=== PATIENT | male | born 1945 | race Caucasian/White ===

== ENCOUNTER → 2018-05-16 08:02 | Outpatient (CLI) | payer MEDICARE, SELFPAY ==
[2018-05-16 09:57] LABS: Cholesterol 169 mg/dL (140-199); HDL Cholesterol 43 mg/dL (40-60); LDL Cholesterol Calculated 82 mg/dL (<100); Triglycerides 222 mg/dL (35-150)
== END ==
PROVIDERS: PCP Family Medicine; Visit Provider Physician Assistant
DX: E78.5 Hyperlipidemia, unspecified (principal)
CPT/HCPCS: 36415; 80061

== ENCOUNTER → 2019-01-18 09:44 | Outpatient (CLI) | payer MEDICARE, SELFPAY ==
--- NOTE | 2019-01-18 09:47 | DI.CT.S_ITS ---
PROCEDURE: CT SOFT TISSUE NECK W CON INDICATIONS: Staging Lymphocytic leukemia TECHNIQUE: After the administration of intravenous contrast, 3.0 mm axial sections acquired from the sella to the aortic arch. Additional oblique axial 3.0 mm sections acquired through the pharynx. 3 mm thick coronal and sagittal reformats were generated. For radiation dose reduction, the following was used: automated exposure control. COMPARISON: None. FINDINGS: Image quality: Excellent. Lymph nodes: There are numerous borderline enlarged cervical lymph nodes bilaterally throughout the neck. Vessels: Visualized vasculature appears patent. Neck spaces: The oropharynx, nasopharynx, and pharynx demonstrate no mucosal lesions. The vocal cords, false vocal cords, pyriform sinuses, epiglottis, vallecula, and tongue base all appear normal. Extramucosal spaces appear unremarkable. Glands: The parotid and submandibular glands appear normal. Thyroid gland is normal. Miscellaneous: Visualized brain and orbits appear normal. Lung apices appear clear. Superficial soft tissues appear normal. Bones: No suspicious bony lesions. Visualized sinuses and mastoids appear unremarkable. IMPRESSION: 1. There are numerous borderline sized cervical lymph nodes throughout the neck bilaterally. PET CT may be helpful to assess lymphomatous involvement in these non-enlarged lymph node. Dictated by: Pato Dejesus M.D. on 01/18/2019 at 12:40 Approved by: Pato Dejesus M.D. on 01/18/2019 at 17:36
--- NOTE | 2019-01-18 09:47 | DI.CT.S_ITS ---
PROCEDURE: CT CHEST ABD PEL W CON INDICATIONS: Staging lyphocytic leukemia TECHNIQUE: After the administration of oral and intravenous contrast, 5 mm thick sections acquired from the lung apices to the symphysis. 5 mm coronal and sagittal reformats were performed, with additional 7 mm coronal MIP reformats through the lungs. For radiation dose reduction, the following was used: automated exposure control, adjustment of mA and/or kV according to patient size. COMPARISON: None. FINDINGS: Image quality: Excellent. CHEST: Lungs and pleura: There is a 3 mm nodule in the left major fissure (series 3, image 38). There is lingular scars/atelectasis. No acute airspace opacities. No pleural effusions or pneumothorax. Central and peripheral airways appear patent and normal in caliber. Mediastinum: Heart size is normal. No pericardial effusion. There is coronary artery bypass grafting. No mediastinal or hilar adenopathy by size criteria. Multiple small subcentimeter mediastinal lymph nodes are present. Thoracic aorta and central pulmonary arteries are normal in size. Esophagus is normal in caliber. There is a small hiatal hernia. Chest wall: Sternotomy. No axillary or supraclavicular adenopathy by size criteria. There are numerous subcentimeter axillary lymph nodes bilaterally. Thyroid gland is normal. ABDOMEN: Solid organs: Small indeterminate hepatic hypodensities are most likely cysts. Liver is normal in size and enhancement. Gallbladder contains a calcified stone could. Biliary system is non dilated. Pancreas enhances normally. Spleen is normal in size and enhancement. No adrenal nodules. Kidneys demonstrate normal size and enhancement, without hydronephrosis. Peritoneum and bowel: Bowel loops demonstrate normal wall thickness and caliber. There are multiple colonic diverticula. No free fluid or air. Nodes and vessels: No retroperitoneal or mesenteric adenopathy by size criteria. Numerous subcentimeter para-aortic and mesenteric lymph nodes are identified. Aorta and inferior vena cava are normal in size. Miscellaneous: No ventral hernias. PELVIS: Genitourinary: Bladder wall thickness is normal. Prostate is enlarged. Miscellaneous: No enlarged inguinal nodes although small inguinal lymph nodes are more numerous than normally seen. Bones: No suspicious bony lesions. No vertebral body compression fractures. IMPRESSION: 1. There are increased in number of subcentimeter lymph nodes in thorax, abdomen and pelvis. FDG PET may be helpful to assess lymphomatous involvement in these small lymph nodes. 2. A 3 mm nodule in the left major fissure. Please see enclosed followup recommendation. 3. Spleen is not enlarged. 4. Cholelithiasis. 5. Diverticulosis without acute diverticulitis. 6. Enlarged prostate. Fleischner Society criteria for SOLID lung nodule followup. Nodule size (mm)Low-risk patientHigh-risk patient?4No follow-up neededFollow-up at 12 mo; if no change, no further follow-up>[id number] CT at 12 mo; if no change, no further follow-up needed.Initial follow-up CT at 6-12 mo, then 18-24 mo if no change. >6-8Initial follow-up CT at 6-12 mo, then 18-24 mo if no change. Initial follow-up CT at 3-6 mo, then 9-12 mo and 24 mo if no change. >8Follow-up CT at 3, 9, 24 mo. Or PET and/or biopsy.Same as for low-risk pts. Dictated by: Pato Dejesus M.D. on 01/18/2019 at 12:34 Approved by: Pato Dejesus M.D. on 01/18/2019 at 17:32
== END ==
PROVIDERS: Family Provider Family Medicine; PCP Family Medicine
DX: C91.90 Lymphoid leukemia, unspecified not having achieved remission (principal); R91.1 Solitary pulmonary nodule; K80.80 Other cholelithiasis without obstruction; K57.90 Diverticulosis of intestine, part unspecified, without perforation or abscess without bleeding; N40.0 Benign prostatic hyperplasia without lower urinary tract symptoms; K44.9 Diaphragmatic hernia without obstruction or gangrene
CPT/HCPCS: 36415; 70491; 71260; 74177; 82565; 84520; 85025; Q9967

== ENCOUNTER → 2019-01-29 15:37 | Outpatient (CLI) | payer MEDICARE, SELFPAY | PROVIDERS: Family Provider Family Medicine; PCP Family Medicine | DX: C91.10 Chronic lymphocytic leukemia of B-cell type not having achieved remission (principal) ==

== ENCOUNTER → 2019-11-26 08:23 | Outpatient (CLI) | payer MEDICARE, SELFPAY ==
[2019-11-26 10:48] LABS: Cholesterol 162 mg/dL (140-199); HDL Cholesterol 35 mg/dL (40-60); LDL Cholesterol Calculated 97 mg/dL (<100); Triglycerides 152 mg/dL (35-150)
[2019-11-26 13:21] LABS: Alanine Aminotransferase 30 IU/L (<50); Albumin 4.2 g/dL (3.5-5.0); Alkaline Phosphatase 56 U/L (38-126); Aspartate Aminotransferase 41 IU/L (17-59); BUN Creatinine Ratio 13.6 (6-22); Bilirubin Total 0.8 mg/dL (0.2-1.3); Blood Urea Nitrogen 15 mg/dL (9-20); Calcium 9.2 mg/dL (8.4-10.2); Carbon Dioxide 22 mmol/L (22-32); Chloride 109 mmol/L (98-107); Estimated Glomerular Filt Rate > 60.0 mL/min (>60); Globulin 2.1 g/dL (1.7-4.1); Glucose 99 mg/dL (80-110); HEMOLYSIS < 15 (0-50); Sodium 141 mmol/L (137-145); Total Protein 6.3 g/dL (6.3-8.2)
== END ==
PROVIDERS: PCP Student in an Organized Health Care Education/Training Program; Visit Provider Physician Assistant
DX: E78.5 Hyperlipidemia, unspecified (principal); I25.10 Atherosclerotic heart disease of native coronary artery without angina pectoris
CPT/HCPCS: 36415; 80053; 80061

== ENCOUNTER → 2020-01-04 10:18 | Outpatient (CLI) | payer MEDICARE, SELFPAY ==
[2020-01-04 11:34] LABS: Hematocrit 41.3 % (41-53); Hemoglobin 13.9 g/dL (13.5-17.5); Mean Corpuscular HGB Conc 33.6 % (30-36); Mean Corpuscular Hemoglobin 31.4 PG (26-34); Mean Corpuscular Volume 93.5 fL (80-100); Platelet Count 145 X10^3/uL (150-400); Red Blood Cell Count 4.41 X10^6/uL (4.5-5.9); Red Cell Distribution Width 13.8 % (11.6-14.8); White Blood Cell Count 22.7 X10^3/uL (4.5-11.0)
[2020-01-04 11:35] LABS: Add Manual Diff / Slide Review YES
[2020-01-04 11:37] LABS: Alanine Aminotransferase 33 IU/L (<50); Albumin 4.2 g/dL (3.5-5.0); Albumin Globulin Ratio 1.7 (1.0-2.8); Alkaline Phosphatase 53 U/L (38-126); Aspartate Aminotransferase 38 IU/L (17-59); Bilirubin Total 0.7 mg/dL (0.2-1.3); Blood Urea Nitrogen 16 mg/dL (9-20); Calcium 9.1 mg/dL (8.4-10.2); Carbon Dioxide 27 mmol/L (22-32); Chloride 104 mmol/L (98-107); Estimated Glomerular Filt Rate > 60.0 mL/min (>60); Globulin 2.5 g/dL (1.7-4.1); Glucose 92 mg/dL (80-110); HEMOLYSIS < 15 (0-50); Potassium 4.5 mmol/L (3.4-5.1); Sodium 138 mmol/L (137-145); Total Protein 6.7 g/dL (6.3-8.2)
[2020-01-04 12:59] LABS: Neutrophils Absolute Manual 4313 /uL (3000-5900); Total Cells Counted 100
[2020-01-04 13:01] LABS: Anisocytosis 1+; Smudge Cells 1+
== END ==
PROVIDERS: PCP Student in an Organized Health Care Education/Training Program; Referring Provider Internal Medicine Hematology & Oncology; Visit Provider Internal Medicine Hematology & Oncology
DX: C91.90 Lymphoid leukemia, unspecified not having achieved remission (principal)
CPT/HCPCS: 36415; 80053; 85025

== ENCOUNTER → 2020-01-11 10:54 | Outpatient (CLI) | payer MEDICARE, SELFPAY ==
--- NOTE | 2020-01-11 10:55 | DI.CT.S_ITS ---
PROCEDURE: CT SOFT TISSUE NECK W CON INDICATIONS: Surveillance of chronic lymphoblastic leukemia TECHNIQUE: After the administration of intravenous contrast, 3.0 mm axial sections acquired from the sella to the aortic arch. Additional oblique axial 3.0 mm sections acquired through the pharynx. 3 mm thick coronal and sagittal reformats were generated. For radiation dose reduction, the following was used: automated exposure control. COMPARISON: [facility], CT, CT CHEST ABD PEL W CON, 01/11/2020, 11:47. [facility], CT, CT SOFT TISSUE NECK W CON, 01/18/2019, 10:56. FINDINGS: Image quality: Excellent. Lymph nodes: There is generalized mild enlargement seen of the cervical lymph nodes. Compared to the 01/18/19 examination, there is no significant interval change. Vessels: Visualized vasculature appears patent. Neck spaces: The oropharynx, nasopharynx, and pharynx demonstrate no mucosal lesions. The vocal cords, false vocal cords, pyriform sinuses, epiglottis, vallecula, and tongue base all appear normal. Extramucosal spaces appear unremarkable. Glands: The parotid and submandibular glands appear normal. Thyroid gland demonstrates no significant CT abnormality. Miscellaneous: Visualized brain and orbits appear normal. Mild dependent groundglass opacity can be seen involving the lung apices, left worse than right. Superficial soft tissues appear normal. Sternotomy wires and mediastinal clips are partially seen. Bones: No suspicious bony lesions. Visualized sinuses and mastoids appear unremarkable. Cervical spine degenerative changes are seen, with moderate to severe disc space narrowing seen at C3-C4, C4-C5, C5-C6, and C6-C7. Endplate irregularity and sclerosis are seen, which are most prominent at C5-C6. IMPRESSION: No significant change in the generalized mild enlargement of the neck lymph nodes. Incidental note is made of: Post CABG change Cervical spine degenerative change Dictated by: Mal Correa M.D. on 01/11/2020 at 11:38 Approved by: Mal Correa M.D. on 01/11/2020 at 11:47
--- NOTE | 2020-01-11 12:05 | DI.CT.S_ITS ---
PROCEDURE: CT CHEST ABD PEL W CON INDICATIONS: Surveillance Chronic lymphoblastic leukemia TECHNIQUE: After the administration of oral and intravenous contrast, 5 mm thick sections acquired from the lung apices to the symphysis. 5 mm coronal and sagittal reformats were performed, with additional 7 mm coronal MIP reformats through the lungs. For radiation dose reduction, the following was used: automated exposure control, adjustment of mA and/or kV according to patient size. COMPARISON: [facility], CT, CT CHEST ABD PEL W CON, 01/18/2019, 10:56. FINDINGS: Image quality: Excellent. CHEST: Lungs and pleura: The 3 mm left major fissure nodule is no longer visualized. No acute airspace opacities. No pleural effusions or pneumothorax. Central and peripheral airways appear patent and normal in caliber. Mediastinum: Heart size is normal. No pericardial effusion. Moderate coronary artery calcifications and coronary artery bypass grafting. Numerous subcentimeter mediastinal or hilar lymph nodes are present. Thoracic aorta and central pulmonary arteries are normal in size. Esophagus is normal in caliber. Small hiatal hernia. Chest wall: There are numerous small right supraclavicular lymph nodes and small bilateral axillary lymph nodes, unchanged. Thyroid gland is normal. There is sternotomy. ABDOMEN: Solid organs: Tiny low density nodules in the liver are most likely hepatic cysts. Liver is normal in size and enhancement. Gallbladder contains a small calcified stone. Biliary system is non dilated. Pancreas enhances normally. Spleen is prominent but within normal limits in size measuring 12 cm. There is a 1 cm right adrenal nodule, unchanged in size. There is left adrenal thickening, also unchanged. Kidneys demonstrate normal size and enhancement, without hydronephrosis. Peritoneum and bowel: There are numerous diverticula in sigmoid colon. Normal appendix. Bowel loops demonstrate normal wall thickness and caliber. No free fluid or air. Nodes and vessels: Numerous borderline enlarged retroperitoneal and mesenteric lymph nodes are identified, demonstrating slight interval enlargement compared to the last exam. For example, a 1.2 cm left para-aortic lymph node previously measured 1.0 cm. A 1.3 x 2.3 cm periportal lymph node previously measured 1.3 x 2.0 cm. A 0.9 x 1.5 cm mesenteric lymph node previously measured 0.8 x 1.0 cm. Mild external iliac lymphadenopathy is present bilaterally, measuring 1.3 cm on the right and 1.2 cm left, unchanged in size since the last exam. Aorta and inferior vena cava are normal in size. Miscellaneous: No ventral hernias. PELVIS: Genitourinary: Bladder may be slightly thickened. Prostate is enlarged. Miscellaneous: No inguinal hernias. Multiple small inguinal lymph nodes are identified, unchanged in size. Bones: No suspicious bony lesions. No vertebral body compression fractures. IMPRESSION: 1. There are numerous borderline enlarged and normal-sized lymph nodes in the thorax, abdomen and pelvis. A few lymph nodes are minimally enlarged. Recommend close clinical and imaging followup. 2. Stable left major fissure lung nodule. 3. Diverticulosis without diverticulitis. 4. Enlarged prostate. Dictated by: Pato Dejesus M.D. on 01/11/2020 at 17:35 Approved by: Pato Dejesus M.D. on 01/11/2020 at 18:25
== END ==
PROVIDERS: PCP Student in an Organized Health Care Education/Training Program; Referring Provider Student in an Organized Health Care Education/Training Program; Visit Provider Internal Medicine Hematology & Oncology
DX: C91.90 Lymphoid leukemia, unspecified not having achieved remission (principal); R59.1 Generalized enlarged lymph nodes; M47.812 Spondylosis without myelopathy or radiculopathy, cervical region; K76.9 Liver disease, unspecified; K80.20 Calculus of gallbladder without cholecystitis without obstruction; E27.9 Disorder of adrenal gland, unspecified; K57.30 Diverticulosis of large intestine without perforation or abscess without bleeding; N40.0 Benign prostatic hyperplasia without lower urinary tract symptoms; Z95.1 Presence of aortocoronary bypass graft
CPT/HCPCS: 70491; 71260; 74177; Q9967

== ENCOUNTER → 2021-01-02 14:49 | Outpatient (CLI) | payer MEDICARE, SELFPAY ==
[2021-01-02] MEDS: COVID-19 VACC #1, MRNA(MOD) 100 MCG/0.5 ML VIAL IM (14:53)
== END ==
PROVIDERS: PCP Student in an Organized Health Care Education/Training Program; Visit Provider Internal Medicine
DX: Z23 Encounter for immunization (principal)
CPT/HCPCS: 0011A; 91301

== ENCOUNTER → 2021-01-29 08:22 | Outpatient (CLI) | payer MEDICARE, SELFPAY ==
[2021-01-29] MEDS: COVID-19 VACC #2, MRNA(MOD) 100 MCG/0.5 ML VIAL IM (08:28)
== END ==
PROVIDERS: PCP Student in an Organized Health Care Education/Training Program; Visit Provider Internal Medicine
DX: Z23 Encounter for immunization (principal)
CPT/HCPCS: 0012A; 91301

== ENCOUNTER → 2023-11-24 08:53 | Outpatient (CLI) | payer MEDICARE, SELFPAY ==
[2023-11-24 10:11] LABS: Alanine Aminotransferase 34 IU/L (<50); Albumin 4.3 g/dL (3.5-5.0); Alkaline Phosphatase 55 U/L (38-126); Aspartate Aminotransferase 49 IU/L (17-59); BUN Creatinine Ratio 18.4 (6-22); Bilirubin Total 0.8 mg/dL (0.2-1.3); Blood Urea Nitrogen 19 mg/dL (9-20); Calcium 9.5 mg/dL (8.4-10.2); Carbon Dioxide 25 mmol/L (22-32); Chloride 108 mmol/L (98-107); Estimated Glomerular Filt Rate > 60 mL/min (>60); Globulin 2.2 g/dL (1.7-4.1); Glucose 95 mg/dL (80-110); HEMOLYSIS < 15 (0-50); Potassium 4.4 mmol/L (3.4-5.1); Sodium 140 mmol/L (137-145); Total Protein 6.5 g/dL (6.3-8.2)
[2023-11-24 10:12] LABS: Add Manual Diff / Slide Review NO; Basophils Absolute Auto 0 /uL (0-100); Basophils Percent Auto 0.1 % (0-2); Eosinophils Absolute Auto 200 /uL (0-450); Eosinophils Percent Auto 0.4 % (2-4); Hematocrit 40.7 % (41-53); Hemoglobin 13.5 g/dL (13.5-17.5); Lymphocytes Absolute Auto 31000 /uL (1100-4500); Lymphocytes Percent Auto 85.3 % (25-40); Mean Corpuscular HGB Conc 33.3 % (30-36); Monocytes Absolute Auto 1000 /uL (0-900); Monocytes Percent Auto 2.9 % (3-14); Neutrophils Absolute Auto 4100 /uL (1500-7000); Neutrophils Percent Auto 11.3 % (50-75); Platelet Count 117 X10^3/uL (150-400); Red Blood Cell Count 4.37 X10^6/uL (4.5-5.9); Red Cell Distribution Width 14.6 % (11.6-14.8)
[2023-11-24 10:13] LABS: Cholesterol 129 mg/dL (140-199); HDL Cholesterol 30 mg/dL (40-60); LDL Cholesterol Calculated 71 mg/dL (<100); Triglycerides 141 mg/dL (35-150)
[2023-11-24 10:40] LABS: White Blood Cell Count 36.3 X10^3/uL (4.5-11.0)
== END ==
PROVIDERS: Internal Medicine Hematology & Oncology; PCP Student in an Organized Health Care Education/Training Program; Referring Provider Nurse Practitioner; Visit Provider Nurse Practitioner
DX: E78.5 Hyperlipidemia, unspecified (principal); C91.10 Chronic lymphocytic leukemia of B-cell type not having achieved remission
CPT/HCPCS: 36415; 80053; 80061; 85025

== ENCOUNTER → 2025-04-26 18:42 | Outpatient (CLI) | payer MEDICARE, SELFPAY ==
[2025-04-26 19:33] LABS: Influenza A - CEPHEID Flu A NEGATIVE (NEGATIVE); Influenza B - CEPHEID Flu B NEGATIVE (NEGATIVE); Respiratory Syncytial Virus Negative (Negative)
[2025-04-26 19:34] LABS: COVID-19 CEPHEID 4-PLEX PCR Negative (Negative)
== END ==
PROVIDERS: PCP Student in an Organized Health Care Education/Training Program; Visit Provider Nurse Practitioner Family
DX: R05.1 Acute cough (principal)
CPT/HCPCS: 0241U

== ENCOUNTER 2025-04-26 18:52 | Emergency (ER) | payer MEDICARE, SELFPAY ==
--- NOTE | 2025-04-26 19:25 | DI.RAD.S_ITS ---
PROCEDURE: XR CHEST 2V INDICATIONS: sob TECHNIQUE: 2 views of the chest were acquired. COMPARISON: None. FINDINGS: Surgical changes and devices: Post median sternotomy and CABG. Lungs and pleura: Lungs are clear. No pleural effusions or pneumothorax. Mediastinum: Mediastinal contours are normal. Heart size is normal. Bones and chest wall: No suspicious bony abnormalities. Soft tissues appear unremarkable. IMPRESSION: No acute cardiopulmonary abnormality is seen. Dictated by: Natalio Asencio M.D. on 04/26/2025 at 20:05 Approved by: Natalio Asencio M.D. on 04/26/2025 at 20:06
[2025-04-26 19:26] VITALS: BP 121/73; PULSE 88; RESP 18; TEMP 37.3; O2SAT 93; BMI 23.6
--- NOTE | 2025-04-27 01:16 | ED.URI ---
HPI - URI/Sore Throat General Chief Complaint: Upper Respiratory Symptoms Stated Complaint: possible pneumonia sent by walkin Time Seen by Provider: 04/27/25 01:16 Source: patient Mode of arrival: Ambulatory History of Present Illness HPI Narrative: 79-year-old male history of CABG on statin daily who presents with complaint of chest congestion particularly on the right side, fevers, little bit of yellow productive sputum feeling a little bit short of breath. Patient states he was not had any chest pain. No lightheadedness or passing out. No nausea or vomiting no GI or urinary symptoms. No new swelling in extremities. States he was had several days of symptoms but develop fevers. He states he was only daily medication is statin. 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 No known drug allergies. No tobacco, no former tobacco use, has a about a half bottle of wine daily, no recreational drugs. Dr. Glover is his primary care physician. Related Data Home Medications ?Medication ?Instructions ?Recorded ?Confirmed aspirin 81 mg tablet,delayed 81 mg DAILY 01/17/19 04/26/25 release (Aspir-) rosuvastatin 40 mg tablet (Crestor) 40 mg PO DAILY 01/17/19 04/26/25 Previous Rx's ?Medication ?Instructions ?Recorded amoxicillin 875 mg-potassium 1 tab PO BID #20 tabs 04/27/25 clavulanate 125 mg tablet Allergies Allergy/AdvReac Type Severity Reaction Status Date / Time No Known Drug Allergies Allergy Unverified 04/26/25 18:31 Review of Systems Review of Systems ROS Unobtainable: All systems reviewed & are unremarkable except as noted in HPI and below Exam Narrative Exam Narrative: GEN: well nourished, well appearing [default value], alert and oriented x [default value], patient appears to be in my distress. HEENT: Atraumatic, pupils are equal round reactive to light, extraocular movements are intact, nares are clear, there is no conjunctival pallor. Throat is clear without any exudates, erythema, tonsillar enlargement or uvular deviation HEART: Regular rate and rhythm without murmur, clicks, rubs. No carotid bruits, pulses are equal in upper and lower extremities LUNGS:Lungs patient has mild wheeze particularly with the upper lungs anterior posteriorly, little bit of crackle in the right, no rhonchi, no tachypnea. Chest moves symmetrically. Speaks in full sentences. ABD:bowel sounds normal, soft, non-tender, no guarding, rebound, rigidity, no masses noted, no hepatosplenomegaly MSCL: Non-tender, no muscle atrophy, muscles strength 5/5 upper and lower extremities, full range of motion, normal gait NEURO:CN 2-12 intact, sensation normal. Initial Vital Signs Initial Vital Signs: Vital Signs Temperature 99.1 F 04/26/25 19:26 Pulse Rate 88 04/26/25 19: Respiratory Rate 18 04/26/25 19:26 Blood Pressure 121/73 04/26/25 19:26 Pulse Oximetry 93 04/26/25 19:26 Oxygen Delivery Method Room Air 04/26/25 19:26 Course Orders Ordered: Discontinued Medications Albuterol (Albuterol Hfa Prepack) 1 box MISC DIRECTED ONE Stop: 04/27/25 02:11 Last Admin: 04/27/25 02:16 Dose: 1 box Documented By: MARQUIS Albuterol/Ipratropium (Albuterol/Ipratropium 3 Ml Ampul) 3 ml INH NOW ONE Stop: 04/27/25 01:56 Last Admin: 04/27/25 01:59 Dose: 3 ml Documented By: MARQUIS Amoxicillin/Clavulanate Potassium (Amoxicillin/Clav 875/125 Mg) 1 tab PO NOW ONE Stop: 04/27/25 01:46 Last Admin: 04/27/25 01:52 Dose: 1 tab Documented By: TEJINDER Vital Signs Vital signs: Vital Signs - 8 hr 04/26/25 19:26 04/27/25 01:41 04/27/25 02:01 Temperature 99.1 F 97.5 F L Pulse Rate 88 70 78 Respiratory Rate 18 20 18 Blood Pressure 121/73 141/83 H Pulse Oximetry 93 95 96 Oxygen Delivery Method Room Air Room Air Room Air Fraction of Inspired Oxygen 21 MDM - URI/Sore Throat MDM Narrative Medical decision making narrative: Chest x-ray shows no acute cardiopulmonary change. Patient has had fevers, yellow/green productive sputum exam has some scant wheeze as well as some out crackles and appears to clinically have pneumonia. Did have an albuterol here which was very helpful. We will set him up with albuterol and spacer and started on oral antibiotics for clinical pneumonia. Patient is nontoxic well-appearing does not appear septic. Discharge Plan Departure Patient Disposition: Home Clinical Impression: Pneumonia Instructions: DI for Acute Bronchitis Activity Restrictions/Additional Instructions: Your chest x-ray does not show an obvious pneumonia but your exam seems consistent with bronchitis versus pneumonia. Use albuterol 1-2 puffs every 4 hours as needed for any wheezing. Take oral antibiotics until completed. Prescription sent to [facility] in [place]. Please return if you have new or worsening symptoms increasing shortness of breath, new chest pain, coughing up blood, lightheadedness or passing out, new swelling of your extremities or other new or concerning changes. Prescriptions: New amoxicillin-pot clavulanate 875-125 mg tablet 1 tab PO BID Qty: 20 0RF No Action rosuvastatin [Crestor] 40 mg Tablet 40 mg PO DAILY aspirin [Aspir-81] 81 mg Tablet,Delayed Release (Dr/Ec) 81 mg DAILY Referrals: Itzel Saenz MD [Primary Care Provider, Family Practice] Stand Alone Forms: Patient Portal/API/Survey
[2025-04-27 01:41] VITALS: BP 141/83; PULSE 70; RESP 20; TEMP 36.4; O2SAT 95
[2025-04-27] MEDS: AMOXICILLIN/CLAV 875/125 MG 1 TAB PO (01:52)
[2025-04-27] MEDS: ALBUTEROL/IPRATROPIUM 3 ML AMPUL INH (01:59)
[2025-04-27 02:01] VITALS: PULSE 78; RESP 18; O2SAT 96
[2025-04-27] MEDS: ALBUTEROL HFA PREPACK 1 BOX MISC (02:16)
== END 2025-04-27 02:28 | disposition home or self-care (01) ==
PROVIDERS: Emergency Provider Emergency Medicine; PCP Student in an Organized Health Care Education/Training Program
DX: J18.9 Pneumonia, unspecified organism (principal); R05.1 Acute cough
CPT/HCPCS: 0241U; 71046; 94640; 99283